=== PATIENT | female | born 1980 | race Caucasian/White ===

== ENCOUNTER 2018-07-13 09:32 | Emergency (ER) | payer BC ==
[~2018-07-13] VITALS: Ht 170.2 cm; Wt 92.5 kg
[2018-07-13 09:36] VITALS: Ht 170.2 cm; Wt 92.5 kg
[2018-07-13] MEDS ORDERED: SOD CHLORIDE 0.9% 1,000 ML IV STA (09:53)
[2018-07-13] MEDS ORDERED: morphine 4 MG/ML VIAL IV STA (09:53)
[2018-07-13] MEDS ORDERED: ONDANSETRON 4 MG INJ IV STA (09:53)
[2018-07-13] MEDS ORDERED: METF500T24 PO (10:23)
[2018-07-13] MEDS ORDERED: [UNRECOGNIZED DRUG - OTHER] PO (10:27)
[2018-07-13] MEDS ORDERED: IBUP800T48 PO (13:06)
[2018-07-13] MEDS ORDERED: DIAZ5TAB PO (13:06)
[2018-07-13 13:22] VITALS: BP 113/85; PULSE 75; RESP 16
--- NOTE | 2018-07-13 14:21 | ERD ---
ER Documentation Chief Complaint Chief Complaint sent fr clinic r/o kidney stone, chonic UTI HPI 37-year-old female presents with sudden onset of right flank pain that is constant to the right flank approximate 8 out of 10. Patient was seen in urgent care and treated with Toradol with no improvement. She was sent to the emergency room for evaluation. There is some report of chronic UTI though the patient does not corroborate this. She denies any lower abdominal pain, fevers or chills, no nausea vomiting or diarrhea. ROS All systems reviewed and are negative except as per history of present illness. Medications Home Meds Active Scripts Diazepam* (Valium*) 5 Mg Tablet, 5 MG PO Q8 PRN for MUSCLE SPASMS, #15 TAB Prov:STACEY SOLARES MD 07/13/18 Ibuprofen* (Motrin*) 800 Mg Tab, 800 MG PO Q6H PRN for PAIN AND OR ELEVATED TEMP, #30 TAB Prov:STACEY SOLARES MD 07/13/18 Reported Medications [Redotex] No Conflict Check, 1 CAP PO DAILY 07/13/18 Metformin Hcl* (Metformin Hcl*) 500 Mg Tablet, 1000 MG PO WITH BREAKFAST DINNE, #60 TAB 07/13/18 Allergies Allergies: Coded Allergies: piroxicam (Unverified Allergy, Unknown, 07/13/18) PMhx/Soc History of Surgery: Yes (C SECTION , CHOLECYSTECTOMY ) Anesthesia Reaction: No Hx Neurological Disorder: No Hx Respiratory Disorders: No Hx Cardiac Disorders: No Hx Psychiatric Problems: No Hx Miscellaneous Medical Probl: No Hx Alcohol Use: No Hx Substance Use: No Hx Tobacco Use: No Smoking Status: Never smoker FmHx Family History: No diabetes Physical Exam Vitals Vital Signs Date Temp Pulse Resp B/P (MAP) Pulse Ox O2 O2 Flow FiO2 Time Delivery Rate 07/13/18 96.7 75 16 113/85 100 Room Air 13:22 (94) 07/13/18 84 16 120/88 99 Room Air 12:00 (99) 07/13/18 89 16 128/82 99 Room Air 10:16 (97) 07/13/18 97.9 85 18 151/89 98 09:36 (109) Physical Exam General: Well developed, well nourished, no acute distress Head: Normocephalic, atraumatic. Eyes: Pupils equally reactive, EOM intact ENT: Moist mucous membranes Neck: Supple, no lymphadenopathy Respiratory: Lungs clear bilaterally, no distress Cardiovascular: RRR, no murmurs, rubs, or gallops Abdominal: Soft, non-tender, non-distended, no peritoneal signs Back: Very reproducible soft tissue tenderness to the paraspinal thoracolumbar back. No CVAT bilaterally. : Deferred MSK: No edema, no unilateral swelling, 5/5 strength Neurologic: Alert and oriented, moving all extremities, normal speech, no focal weakness, no cerebellar signs Skin: No rash Psych: Normal mood Result Diagram: 07/13/18 1004 07/13/18 1004 Results 24 hrs Laboratory Tests Test 07/13/18 10:04 07/13/18 10:07 White Blood Count 7.8 10^3/ul Red Blood Count 4.45 10^6/ul Hemoglobin 12.5 g/dl Hematocrit 38.4 % Mean Corpuscular Volume 86.3 fl Mean Corpuscular Hemoglobin 28.1 pg Mean Corpuscular Hemoglobin Concent 32.6 g/dl Red Cell Distribution Width 13.3 % Platelet Count 266 10^3/UL Mean Platelet Volume 9.2 fl Immature Granulocytes % 0.500 % Neutrophils % 68.1 % Lymphocytes % 23.9 % Monocytes % 6.6 % Eosinophils % 0.3 % Basophils % 0.6 % Nucleated Red Blood Cells % 0.0 /100WBC Immature Granulocytes # 0.040 10^3/ul Neutrophils # 5.3 10^3/ul Lymphocytes # 1.9 10^3/ul Monocytes # 0.5 10^3/ul Eosinophils # 0.0 10^3/ul Basophils # 0.1 10^3/ul Nucleated Red Blood Cells # 0.0 10^3/ul Urine Color YELLOW Urine Clarity CLEAR Urine pH 9.0 Urine Specific [place] 1.017 Urine Ketones NEGATIVE mg/dL Urine Nitrite NEGATIVE mg/dL Urine Bilirubin NEGATIVE mg/dL Urine Urobilinogen NEGATIVE mg/dL Urine Leukocyte Esterase NEGATIVE Dustin/ul Urine Hemoglobin NEGATIVE mg/dL Urine Glucose NEGATIVE mg/dL Urine Total Protein NEGATIVE mg/dl Sodium Level 139 mmol/L Potassium Level 4.2 mmol/L Chloride Level 102 mmol/L Carbon Dioxide Level 27 mmol/L Anion Gap 10 Blood Urea Nitrogen 9 mg/dl Creatinine 0.44 mg/dl Est Glomerular Filtrat Rate mL/min > 60 mL/min Glucose Level 99 mg/dl Calcium Level 9.3 mg/dl Total Bilirubin 0.4 mg/dl Direct Bilirubin 0.00 mg/dl Indirect Bilirubin 0.4 mg/dl Aspartate Amino Transf (AST/SGOT) 33 IU/L Alanine Aminotransferase (ALT/SGPT) 58 IU/L Alkaline Phosphatase 50 IU/L Total Protein 7.8 g/dl Albumin 4.3 g/dl Globulin 3.50 g/dl Albumin/Globulin Ratio 1.22 Lipase 51 U/L POC Beta HCG, Qualitative NEGATIVE Current Medications Medications Dose Sig/Alley Start Time Status Last (Trade) Ordered Route PRN Stop Time Admin Dose Reason Admin Sodium 1,000 ml @ Q1H STAT 07/13/18 DC 07/13/18 Chloride 1,000 mls/hr IV 09:53 07/13/18 10:09 10:52 Morphine 4 mg ONCE STAT 07/13/18 DC 07/13/18 Sulfate IV 09:53 07/13/18 10:09 (morphine) 09:55 Ondansetron 4 mg ONCE STAT 07/13/18 DC 07/13/18 HCl (Zofran IV 09:53 07/13/18 10:09 Inj) 09:55 Procedures/MDM EKG, MONITORS, & DIAGNOSTIC IMAGING: CT a/p IMPRESSION: No urinary tract stone or secondary signs of urinary tract obstruction. No evidence of intestinal obstruction or appendicitis, free air or abscess. Hepatic steatosis. Prior cholecystectomy. No biliary ductal dilatation. Left ovary is noted to be larger than the right, and is of low density, favoring the presence of a cyst measuring approximately 4.0 cm, most commonly physiologic. Follow-up ultrasound is recommended in 6-12 weeks to reassess. Nonspecific findings of thin-walled ovoid hypodensity tracking inferiorly along the posterior margin of the left iliopsoas, nearby which there is a small region of calcification or ossification along the anterior margin of the left ilium, perhaps on the basis of prior trauma/injury or postsurgical such a history exists. If no priors, this appearance may be better assessed with the use of intravenous contrast on follow-up CT or by pelvic MRI without and with contrast, on a non emergent basis. RPTAT: HSAF LAB INTERPRETATION: I reviewed the laboratory testing and it shows no evidence of acute process MEDICAL DECISION MAKING: The patient presents with right flank pain. Unclear etiology but given very reproducible symptoms this is possibly consistent with musculoskeletal etiology. However given concern for sudden onset of symptoms and severity CT imaging of the abdomen pelvis would be appropriate to rule out ureterolithiasis. No shortness of breath or cough or signs or symptoms concerning for pulmonary embolism or cardiopulmonary process. No rash to suggest shingles ER COURSE: * Patient was given pain control medication with mild to moderate improvement. * Her laboratory testing and diagnostic imaging is unrevealing. Patient has nonspecific findings on CT that are consistent with possible left ovarian cyst and nonspecific calcification. These are likely incidental and unlikely causing the patient's symptoms given that she has very reproducible right- sided symptoms. I do not believe pelvic ultrasound imaging or CT imaging with IV contrast or MRI imaging are necessary emergently. The patient was informed, imaging was printed off for prompt primary care follow-up. Return precautions were discussed and understood. CONSULTATION: None DISPOSITION PLAN: The patient does not have an identifiable emergent medical condition that warrants inpatient hospitalization at this time. The patient is deemed safe for discharge with outpatient follow-up. We discussed follow up with the patient's primary care doctor within 24 to 48 hours as needed. We also discussed return to the emergency room for worsening symptoms or worsening condition. Outpatient referral: None required Discharge Medications: Motrin, Valium Departure Diagnosis: Primary Impression: Flank pain Condition: Stable Patient Instructions: Flank Pain, Uncertain Cause Referrals: [facility] YOU HAVE RECEIVED A MEDICAL SCREENING EXAM AND THE RESULTS INDICATE THAT YOU DO NOT HAVE A CONDITION THAT REQUIRES URGENT TREATMENT IN THE EMERGENCY DEPARTMENT. FURTHER EVALUATION AND TREATMENT OF YOUR CONDITION CAN WAIT UNTIL YOU ARE SEEN IN YOUR DOCTORS OFFICE WITHIN THE NEXT 1-2 DAYS. IT IS YOUR RESPONSIBILITY TO MAKE AN APPOINTMENT FOR FOLOW-UP CARE. IF YOU HAVE A PRIMARY DOCTOR --you should call your primary doctor and schedule an appointment IF YOU DO NOT HAVE A PRIMARY DOCTOR YOU CAN CALL OUR PHYSICIAN REFERRAL HOTLINE AT IF YOU CAN NOT AFFORD TO SEE A PHYSICIAN YOU CAN CHOSE FROM THE FOLLOWING [facility] [id number] [facility] [address] [facility] [address] [facility] [address] [facility]. [facility] [address] [facility]. [facility] [address] [facility]. [facility] YOU HAVE RECEIVED A MEDICAL SCREENING EXAM AND THE RESULTS INDICATE THAT YOU DO NOT HAVE A CONDITION THAT REQUIRES URGENT TREATMENT IN THE EMERGENCY DEPARTMENT. FURTHER EVALUATION AND TREATMENT OF YOUR CONDITION CAN WAIT UNTIL YOU ARE SEEN IN YOUR DOCTORS OFFICE WITHIN THE NEXT 1-2 DAYS. IT IS YOUR RESPONSIBILITY TO MAKE AN APPOINTMENT FOR FOLOW-UP CARE. IF YOU HAVE A PRIMARY DOCTOR --you should call your primary doctor and schedule and appointment IF YOU DO NOT HAVE A PRIMARY DOCTOR YOU CAN CALL OUR PHYSICIAN REFERRAL HOTLINE AT . IF YOU CAN NOT AFFORD TO SEE A PHYSICIAN YOU CAN CHOSE FROM THE FOLLOWING [facility] INSTITUTIONS: [facility] [id number] [place] [id number] [facility] [address] [place], [place] [id number] [place] [address] [address] [place] [address] Additional Instructions: Call your primary care doctor TOMORROW for an appointment during the next 1 WEEK.Tell the medical unit secretary that you were referred from this facility.See the doctor sooner or return here if your condition worsens before your appointment time. STACEY SOLARES MD Jul 13, 2018 14:21
== END 2018-07-13 13:23 | disposition home or self-care (01) ==
LOC: E/R 09:32
DX: R10.9 Unspecified abdominal pain (principal)
CPT/HCPCS: 74176; 80053; 81003; 81025; 83690; 85025; J2270; J2405; J7030; 36415; 96361; 96374; 96375